=== PATIENT | male | born 1995 | race Caucasian/White ===

== ENCOUNTER 2018-03-05 08:57 | Inpatient (IN) | payer BC ==
[~2018-03-05] VITALS: Ht 188 cm; Wt 117.9 kg
[~2018-03-05 08:57] MED LIST: LAMO200T PO; PREG300C PO; STRATTERA PO
[2018-03-05 09:04] VITALS: BP_SYST 148
[2018-03-05] MEDS ORDERED: NACL 0.9% 1,000 ML IV ONE ×2 (09:23→17:30)
[2018-03-05] MEDS ORDERED: INSULIN REGULAR, HUMAN 10 UNITS/0.1 ML INJ IVP ONE ×2 (09:30→11:15)
[2018-03-05 10:01] LABS: HEMATOCRIT 46.9 % (36-54); HEMOGLOBIN 15.5 g/dL (14.0-18.0); MEAN CORPUSCULAR HEMOGLOBIN 32 pg (27-31); MEAN CORPUSCULAR HGB CONC 33 % (32-36); MEAN CORPUSCULAR VOLUME 96 fL (79.0-98.0); PLATELET COUNT (AUTO) 281 K/uL (130-430); RED BLOOD CELL COUNT(AUTO) 4.89 MIL/uL (4.2-6.2); RED CELL DISTRIBUTION WIDTH 14.9 % (9.0-15.0); WHITE BLOOD COUNT (AUTO) 13.4 K/uL (4.5-11.0)
[2018-03-05 10:13] LABS: ATYPICAL LYMPHOCYTES % 0 % (0-0); BAND % (MANUAL) 2 % (0-6); BASOPHILS % (MANUAL) 0 % (0-2); EOSINOPHILS % (MANUAL) 0 % (0-7); LYMPHOCYTES % (MANUAL) 13 % (20-46); MONOCYTES % (MANUAL) 6 % (0-11)
[2018-03-05 10:15] LABS: BILIRUBIN,URINE 2+ (NEGATIVE); CLARITY/URINE CLEAR (CLEAR); COLOR,URINE YELLOW (YELLOW); GLUCOSE,URINE 3+ (NEGATIVE); KETONES,URINE 3+ (NEGATIVE); LEUKOCYTE ESTERASE ,URINE NEGATIVE (NEGATIVE); NITRITE, URINE NEGATIVE (NEGATIVE); PH,URINE 5.5 (5.0-8.0); PROTEIN URINE 1+ (NEGATIVE); UROBILINOGEN,URINE 0.2 (0.2-1.0)
[2018-03-05 10:31] LABS: BLOOD, URINE TRACE (NEGATIVE)
[2018-03-05 10:38] LABS: PROTHROMBIN TIME 10.3 SECS (9.5-12.5)
[2018-03-05 10:40] LABS: ANION GAP 36 (5-15); POTASSIUM 5.4 mmol/L (3.5-5.1); SODIUM SERUM 123 mmol/L (136-145)
[2018-03-05 10:41] LABS: ALANINE AMINOTRANSFERASE 73 U/L (12-78); ALBUMIN 3.9 g/dL (3.4-4.8); ASPARTATE AMINOTRANSFERASE 27 U/L (10-37); CALCIUM 9.4 mg/dL (8.4-11.0); CREATININE 3.49 mg/dL (0.55-1.30); GFR AFRICAN AMERICAN 29 mL/min (>90); TOTAL BILIRUBIN 0.7 mg/dL (0.0-1.0); UREA NITROGEN, BLOOD 39 mg/dL (8-21)
[2018-03-05 10:42] LABS: ALCOHOL, BLOOD < 3 mg/dL (<10); AMYLASE 28 U/L (0-100); LIPASE 306 U/L (73-393)
[2018-03-05 10:45] LABS: CHLORIDE 81 mmol/L (98-107)
[2018-03-05 10:57] LABS: GLUCOSE 816 mg/dL (70-99)
[2018-03-05] MEDS ORDERED: MORPHINE 4 MG/ML INJ. SYRINGE IVP ONE (11:00)
[2018-03-05 11:10] LABS: CALCIUM 9.1 mg/dL (8.4-11.0); CREATININE 3.09 mg/dL (0.55-1.30)
[2018-03-05 11:15] LABS: POTASSIUM 5.9 mmol/L (3.5-5.1)
[2018-03-05 11:23] LABS: BARBITURATE, URINE NEGATIVE (NEG <=200); BENZODIAZEPINE, URINE NEGATIVE (NEG <=150); CANNABINOID, URINE NEGATIVE (NEG <=50); COCAINE, URINE NEGATIVE (NEG <=150); METHAMPHETAMINES SCREEN,URINE NEGATIVE (NEG <=500); OPIATE, URINE NEGATIVE (NEG <=100); PHENCYCLIDINE SCREEN,URINE NEGATIVE (NEG <=25); UR TRICYCLIC ANTIDEPRESSANTS NEGATIVE (NEG <=300); URINE AMPHETAMINE NEGATIVE (NEG <=500); URINE METHADONE NEGATIVE (NEG <=200); URINE OXYCODONE SCREEN NEGATIVE (NEG <=100); URINE PROPOXYPHENE SCREEN NEGATIVE (NEG <=300)
[2018-03-05 11:24] LABS: BACTERIA,URINE FEW /HPF (None Seen); MUCUS,URINE None Seen /LPF (None Seen); RBC,URINE 0-3 /HPF (0-3); WBC,URINE 0-3 /HPF (0-3)
[2018-03-05] MEDS ORDERED: MORPHINE I.V. DRIP 100 ML IV PRN (12:00)
[2018-03-05] MEDS: INSULIN REGULAR, HUMAN 100 UNITS in NS 99 ML IV PRN ×4 (12:34→15:09)
[2018-03-05] MEDS ORDERED: SODIUM BICARBONATE 8.4% JECT 50 MEQ/50 ML SYRINGE ONE ×2 (12:40→20:00)
[2018-03-05 15:31] LABS: CALCIUM 9.4 mg/dL (8.4-11.0); CREATININE 2.35 mg/dL (0.55-1.30); POTASSIUM 4.8 mmol/L (3.5-5.1)
[2018-03-05] MEDS ORDERED: SODIUM BICARBONATE 8.4% JECT 100 MEQ in D5W 1,000 ML IV SCH ×2 (17:15→23:30)
[2018-03-05] MEDS ORDERED: INSULIN NPH 100 UNITS/ML 10 ML VIAL SUBCUT ONE (17:30)
[2018-03-05] MEDS ORDERED: SODIUM BICARBONATE 8.4% JECT 50 MEQ/50 ML SYRINGE IVP ONE (18:00)
[2018-03-05] MEDS: NACL 0.9% 1,000 ML IV SCH ×3 (19:13→22:10)
[2018-03-05 20:00] VITALS: BP_SYST 132
[2018-03-05 20:19] VITALS: BP_SYST 132
[2018-03-05 20:49] LABS: CALCIUM 8.4 mg/dL (8.4-11.0); CREATININE 1.64 mg/dL (0.55-1.30); POTASSIUM 4.5 mmol/L (3.5-5.1)
[2018-03-05 21:00] VITALS: BP_SYST 124
[2018-03-05] MEDS: PREGABALIN 75 MG CAPSULE (LYRICA) PO SCH (21:00)
[2018-03-05] MEDS ORDERED: cefTRIAXone 1 GM IVPB PREMIX 50 ML IV ONE (21:04)
[2018-03-05] MEDS: cefTRIAXone 1 GM in D5W 50 ML IV SCH (21:18)
[2018-03-05] MEDS ORDERED: INSULIN REGULAR, HUMAN 100 UNITS in NS 99 ML IV PRN ×2 (21:45)
[2018-03-05 22:00] VITALS: BP_SYST 122
[2018-03-05 22:40] LABS: CALCIUM 8.3 mg/dL (8.4-11.0); CREATININE 1.18 mg/dL (0.55-1.30); POTASSIUM 4.7 mmol/L (3.5-5.1)
[2018-03-05 22:46] LABS: ALBUMIN 3.1 g/dL (3.4-4.8); TOTAL BILIRUBIN 0.6 mg/dL (0.0-1.0)
[2018-03-05 23:00] VITALS: BP_SYST 137
[2018-03-06] VITALS (24 sets, daily range): BP systolic 135–187
[2018-03-06] MEDS ORDERED: PANTOPRAZOLE SODIUM 40 MG/VIAL (PROTONIX) ONE (00:14)
[2018-03-06] MEDS: PANTOPRAZOLE SODIUM 40 MG/VIAL (PROTONIX) IVP SCH ×2 (00:15→08:58)
[2018-03-06] MEDS ORDERED: DIVA500T4 PO (00:38)
[2018-03-06] MEDS ORDERED: LACO100T2 PO (00:38)
[2018-03-06] MEDS ORDERED: SODIUM BICARBONATE 8.4% JECT 50 MEQ/50 ML SYRINGE ONE (01:32)
[2018-03-06] MEDS: NACL 0.9% 1,000 ML IV SCH (03:40)
[2018-03-06 06:23] LABS: BASOPHILS % (AUTO) 0.4 % (0.0-2.0); EOSINOPHILS % (AUTO) 0.4 % (0.0-4.0); HEMATOCRIT 36.8 % (36-54); HEMOGLOBIN 12.6 g/dL (14.0-18.0); LYMPHOCYTES # (AUTO) 2.2 K/uL (1.0-5.5); LYMPHOCYTES % (AUTO) 32.9 % (20.5-51.5); MEAN CORPUSCULAR HEMOGLOBIN 32 pg (27-31); MEAN CORPUSCULAR HGB CONC 34 % (32-36); MEAN CORPUSCULAR VOLUME 93 fL (79.0-98.0); MONOCYTES # (AUTO) 0.6 K/uL (0.0-1.0); MONOCYTES % (AUTO) 9.5 % (1.7-9.3); NEUTROPHILS % (AUTO) 56.8 % (40.0-70.0); PLATELET COUNT (AUTO) 164 K/uL (130-430); RED BLOOD CELL COUNT(AUTO) 3.96 MIL/uL (4.2-6.2); RED CELL DISTRIBUTION WIDTH 14.6 % (9.0-15.0); WHITE BLOOD COUNT (AUTO) 6.8 K/uL (4.5-11.0)
[2018-03-06 07:04] LABS: CREATININE 1.36 mg/dL (0.55-1.30); PHOSPHORUS 1.6 mg/dL (2.7-4.5)
[2018-03-06] MEDS ORDERED: LORazepam 2 MG/ML VIAL IVP PRN (08:15)
[2018-03-06] MEDS ORDERED: STRATTERA 80 MG PO SCH (09:00)
[2018-03-06] MEDS ORDERED: INSULIN REGULAR, HUMAN 100 UNITS/ML, 10 ML VIAL (novoLIN R) SUBCUT PRN (12:15)
[2018-03-06] MEDS ORDERED: POTASSIUM CHLORIDE 20 MEQ/PKT PACKET PO ONE (12:15)
[2018-03-06] MEDS: PREGABALIN 75 MG CAPSULE (LYRICA) PO SCH (12:32)
[2018-03-06] MEDS ORDERED: LIP20 PO (12:35)
[2018-03-06] MEDS ORDERED: GLU500 PO (12:35)
[2018-03-06] MEDS ORDERED: LOSA50TA3 PO (12:35)
[2018-03-06 12:41] LABS: CREATININE 1.25 mg/dL (0.55-1.30); POTASSIUM 3.2 mmol/L (3.5-5.1)
[2018-03-06 12:45] LABS: PHOSPHORUS 2.4 mg/dL (2.7-4.5)
[2018-03-06] MEDS: KCL 20 mEq in 0.45% NS 1000 mL 1,000 ML IV SCH ×3 (14:09→21:46)
[2018-03-06] MEDS ORDERED: POTASSIUM CHLORIDE 20 MEQ TAB.PRT.SR PO ONE ×3 (15:00→23:10)
[2018-03-06] MEDS: cefTRIAXone 1 GM in D5W 50 ML IV SCH (17:03)
[2018-03-06] MEDS ORDERED: metFORMIN HCL 500 MG TABLET PO SCH (18:00)
[2018-03-06] MEDS ORDERED: LOSARTAN POTASSIUM 50 MG TABLET (COZAAR) PO ONE (18:30)
[2018-03-06] MEDS ORDERED: DIVALPROEX SODIUM 500 MG TAB.SR.24H (DEPAKOTE ER) PO ONE (18:30)
[2018-03-06] MEDS ORDERED: LAM25 PO (18:44)
[2018-03-06] MEDS ORDERED: INSULIN REGULAR, HUMAN 100 UNITS in NS 99 ML IV SCH ×2 (19:30)
[2018-03-06 20:37] LABS: CREATININE 1.23 mg/dL (0.55-1.30); PHOSPHORUS 2.1 mg/dL (2.7-4.5)
[2018-03-06] MEDS: LACOSAMIDE 100 MG TABLET PO SCH (20:53)
[2018-03-06] MEDS: LamoTRIgine 25 MG TABLET PO SCH (20:53)
[2018-03-06] MEDS: ATORVASTATIN 20 MG TABLET PO SCH (20:53)
[2018-03-06] MEDS ORDERED: INSULIN ASPART 100 UNITS/ML, 10 ML VIAL SUBCUT ONE (21:15)
[2018-03-07] VITALS (13 sets, daily range): BP systolic 125–157
[2018-03-07] MEDS: KCL 20 mEq in 0.45% NS 1000 mL 1,000 ML IV SCH ×4 (03:01→19:13)
[2018-03-07 06:39] LABS: BASOPHILS # (AUTO) 0.1 K/uL (0.0-0.2); BASOPHILS % (AUTO) 0.7 % (0.0-2.0); EOSINOPHILS # (AUTO) 0.1 K/uL (0.0-0.4); EOSINOPHILS % (AUTO) 1.5 % (0.0-4.0); HEMATOCRIT 36.8 % (36-54); HEMOGLOBIN 12.9 g/dL (14.0-18.0); LYMPHOCYTES # (AUTO) 2.8 K/uL (1.0-5.5); LYMPHOCYTES % (AUTO) 32.7 % (20.5-51.5); MEAN CORPUSCULAR HEMOGLOBIN 32 pg (27-31); MEAN CORPUSCULAR HGB CONC 35 % (32-36); MEAN CORPUSCULAR VOLUME 92 fL (79.0-98.0); MONOCYTES # (AUTO) 0.9 K/uL (0.0-1.0); MONOCYTES % (AUTO) 10.1 % (1.7-9.3); NEUTROPHILS # (AUTO) 4.6 K/uL (1.8-7.7); PLATELET COUNT (AUTO) 150 K/uL (130-430); RED BLOOD CELL COUNT(AUTO) 4.01 MIL/uL (4.2-6.2); RED CELL DISTRIBUTION WIDTH 13.6 % (9.0-15.0); WHITE BLOOD COUNT (AUTO) 8.5 K/uL (4.5-11.0)
[2018-03-07 06:51] LABS: CALCIUM 9.2 mg/dL (8.4-11.0); CREATININE 1.1 mg/dL (0.55-1.30); POTASSIUM 3.4 mmol/L (3.5-5.1); THYROID STIMULATING HORMONE 2.28 uIu/mL (0.34-4.82); TOTAL BILIRUBIN 0.6 mg/dL (0.0-1.0)
[2018-03-07] MEDS: INSULIN ASPART 100 UNITS/ML, 10 ML VIAL (NovoLOG) SUBCUT PRN ×4 (07:00→20:33)
[2018-03-07] MEDS ORDERED: POTASSIUM CHLORIDE 20 MEQ/PKT PACKET PO ONE (08:45)
[2018-03-07] MEDS: LACOSAMIDE 100 MG TABLET PO SCH ×2 (09:07→20:22)
[2018-03-07] MEDS: LamoTRIgine 25 MG TABLET PO SCH ×2 (09:07→20:22)
[2018-03-07] MEDS: LOSARTAN POTASSIUM 50 MG TABLET (COZAAR) PO SCH (09:08)
[2018-03-07] MEDS: DIVALPROEX SODIUM 500 MG TAB.SR.24H (DEPAKOTE ER) PO SCH ×2 (09:08→20:23)
[2018-03-07] MEDS: PANTOPRAZOLE SODIUM 40 MG/VIAL (PROTONIX) IVP SCH (09:09)
[2018-03-07] MEDS ORDERED: POTASSIUM CHLORIDE 20 MEQ/PKT PACKET ONE (09:24)
[2018-03-07] MEDS ORDERED: MAGNESIUM SULFATE 50 ML IV ONE (12:30)
[2018-03-07] MEDS ORDERED: POTASSIUM CHLORIDE 20 MEQ TAB.PRT.SR PO ONE (12:30)
[2018-03-07] MEDS: cefTRIAXone 1 GM in D5W 50 ML IV SCH (17:00)
[2018-03-07] MEDS: ATORVASTATIN 20 MG TABLET PO SCH (20:23)
[2018-03-08 00:47] VITALS: BP_SYST 122
[2018-03-08] MEDS: KCL 20 mEq in 0.45% NS 1000 mL 1,000 ML IV SCH ×2 (02:03→08:36)
[2018-03-08] MEDS: INSULIN ASPART 100 UNITS/ML, 10 ML VIAL (NovoLOG) SUBCUT PRN ×4 (06:05→21:48)
[2018-03-08 06:54] LABS: BASOPHILS % (AUTO) 0.5 % (0.0-2.0); EOSINOPHILS # (AUTO) 0.1 K/uL (0.0-0.4); HEMATOCRIT 32.8 % (36-54); HEMOGLOBIN 11.4 g/dL (14.0-18.0); LYMPHOCYTES # (AUTO) 2.9 K/uL (1.0-5.5); LYMPHOCYTES % (AUTO) 55.2 % (20.5-51.5); MEAN CORPUSCULAR HEMOGLOBIN 32 pg (27-31); MEAN CORPUSCULAR HGB CONC 35 % (32-36); MEAN CORPUSCULAR VOLUME 93 fL (79.0-98.0); MONOCYTES # (AUTO) 0.4 K/uL (0.0-1.0); MONOCYTES % (AUTO) 8.7 % (1.7-9.3); NEUTROPHILS # (AUTO) 1.7 K/uL (1.8-7.7); NEUTROPHILS % (AUTO) 33.6 % (40.0-70.0); PLATELET COUNT (AUTO) 113 K/uL (130-430); RED BLOOD CELL COUNT(AUTO) 3.54 MIL/uL (4.2-6.2); RED CELL DISTRIBUTION WIDTH 13.4 % (9.0-15.0); WHITE BLOOD COUNT (AUTO) 5.1 K/uL (4.5-11.0)
[2018-03-08 07:29] LABS: CALCIUM 8.9 mg/dL (8.4-11.0); CREATININE 1.04 mg/dL (0.55-1.30); POTASSIUM 3.5 mmol/L (3.5-5.1)
[2018-03-08] MEDS: LOSARTAN POTASSIUM 50 MG TABLET (COZAAR) PO SCH (08:29)
[2018-03-08] MEDS: DIVALPROEX SODIUM 500 MG TAB.SR.24H (DEPAKOTE ER) PO SCH ×2 (08:29→21:37)
[2018-03-08] MEDS: PANTOPRAZOLE SODIUM 40 MG/VIAL (PROTONIX) IVP SCH (08:29)
[2018-03-08] MEDS: LACOSAMIDE 100 MG TABLET PO SCH ×2 (08:30→21:38)
[2018-03-08] MEDS: LamoTRIgine 25 MG TABLET PO SCH ×2 (08:30→21:37)
[2018-03-08 08:43] VITALS: BP_SYST 136
[2018-03-08 12:00] VITALS: BP_SYST 125
[2018-03-08] MEDS ORDERED: INSULIN Aspart Prota/Aspar MIX 70-30, 100 UNITS/ML, 10 ML VIAL SUBCUT SCH (17:00)
[2018-03-08 17:10] VITALS: BP_SYST 126
[2018-03-08] MEDS: INSULIN NPH/REGULAR 70-30, 100 UNITS/ML, 10 ML VIAL SUBCUT SCH (17:28)
[2018-03-08] MEDS: cefTRIAXone 1 GM in D5W 50 ML IV SCH (17:36)
[2018-03-08 20:00] VITALS: BP_SYST 127
[2018-03-08] MEDS: IPRATROPIUM/ALBUTEROL SULFATE 3 ML AMPUL.NEB INH SCH (20:30)
[2018-03-08 20:42] VITALS: BP_SYST 126
[2018-03-08] MEDS: ATORVASTATIN 20 MG TABLET PO SCH (21:38)
[2018-03-09] MEDS: IPRATROPIUM/ALBUTEROL SULFATE 3 ML AMPUL.NEB INH SCH ×7 (00:03→23:00)
[2018-03-09 00:27] VITALS: BP_SYST 109
[2018-03-09] MEDS: INSULIN ASPART 100 UNITS/ML, 10 ML VIAL (NovoLOG) SUBCUT PRN ×4 (06:22→21:11)
[2018-03-09] MEDS: INSULIN NPH/REGULAR 70-30, 100 UNITS/ML, 10 ML VIAL SUBCUT SCH ×2 (06:22→17:14)
[2018-03-09 06:54] LABS: HEMATOCRIT 31.4 % (36-54); HEMOGLOBIN 11.1 g/dL (14.0-18.0); MEAN CORPUSCULAR HEMOGLOBIN 33 pg (27-31); MEAN CORPUSCULAR HGB CONC 35 % (32-36); MEAN CORPUSCULAR VOLUME 92 fL (79.0-98.0); PLATELET COUNT (AUTO) 105 K/uL (130-430); RED CELL DISTRIBUTION WIDTH 13.3 % (9.0-15.0); WHITE BLOOD COUNT (AUTO) 4.3 K/uL (4.5-11.0)
[2018-03-09] MEDS ORDERED: INSULIN Aspart Prota/Aspar MIX 70-30, 100 UNITS/ML, 10 ML VIAL SUBCUT SCH (07:00)
[2018-03-09 07:07] LABS: CALCIUM 9.1 mg/dL (8.4-11.0); POTASSIUM 3.5 mmol/L (3.5-5.1)
[2018-03-09 08:00] VITALS: BP_SYST 118
[2018-03-09 08:02] LABS: BASOPHILS % (MANUAL) 0 % (0-2); EOSINOPHILS % (MANUAL) 0 % (0-7); LYMPHOCYTES % (MANUAL) 55 % (20-46); MONOCYTES % (MANUAL) 9 % (0-11)
[2018-03-09] MEDS: LACOSAMIDE 100 MG TABLET PO SCH ×2 (09:18→21:09)
[2018-03-09] MEDS: LOSARTAN POTASSIUM 50 MG TABLET (COZAAR) PO SCH (09:19)
[2018-03-09] MEDS: PANTOPRAZOLE SODIUM 40 MG/VIAL (PROTONIX) IVP SCH (09:19)
[2018-03-09] MEDS: LamoTRIgine 25 MG TABLET PO SCH ×2 (09:19→21:09)
[2018-03-09] MEDS: DIVALPROEX SODIUM 500 MG TAB.SR.24H (DEPAKOTE ER) PO SCH ×2 (09:19→21:09)
[2018-03-09 12:00] VITALS: BP_SYST 125
[2018-03-09 14:00] VITALS: BP_SYST 144
[2018-03-09 20:00] VITALS: BP_SYST 130
[2018-03-09] MEDS: ATORVASTATIN 20 MG TABLET PO SCH (21:09)
[2018-03-09 21:39] VITALS: BP_SYST 133
[2018-03-10] MEDS: IPRATROPIUM/ALBUTEROL SULFATE 3 ML AMPUL.NEB INH SCH ×3 (03:00→11:53)
[2018-03-10] MEDS: INSULIN NPH/REGULAR 70-30, 100 UNITS/ML, 10 ML VIAL SUBCUT SCH (06:20)
[2018-03-10] MEDS: INSULIN ASPART 100 UNITS/ML, 10 ML VIAL (NovoLOG) SUBCUT PRN ×2 (06:25→12:05)
[2018-03-10 08:00] VITALS: BP_SYST 132
[2018-03-10] MEDS: LACOSAMIDE 100 MG TABLET PO SCH (08:46)
[2018-03-10] MEDS: LamoTRIgine 25 MG TABLET PO SCH (08:46)
[2018-03-10] MEDS: PANTOPRAZOLE SODIUM 40 MG/VIAL (PROTONIX) IVP SCH (08:47)
[2018-03-10] MEDS: LOSARTAN POTASSIUM 50 MG TABLET (COZAAR) PO SCH (08:47)
[2018-03-10] MEDS: DIVALPROEX SODIUM 500 MG TAB.SR.24H (DEPAKOTE ER) PO SCH (08:47)
[2018-03-10 12:11] VITALS: BP_SYST 118
[2018-03-10] MEDS ORDERED: HUM10VIA3 SUBCUT ×2 (13:54→13:56)
[2018-03-10 14:07] VITALS: BP_SYST 127
[2018-03-10] MEDS ORDERED: INSULIN NPH/REGULAR 70-30, 100 UNITS/ML, 10 ML VIAL SUBCUT SCH (17:00)
[2018-03-11] MEDS ORDERED: INSULIN NPH/REGULAR 70-30, 100 UNITS/ML, 10 ML VIAL SUBCUT SCH (07:00)
== END 2018-03-10 14:40 | disposition home health service (06) | DRG 637 ==
LOC: SED 08:57 → SIC 11:40 → STU 03-07 10:20 → SMU 03-09 12:29
PROVIDERS: ADMIT Internal Medicine; ATTEND Internal Medicine
DX: E11.11 Type 2 diabetes mellitus with ketoacidosis with coma (principal); N17.0 Acute kidney failure with tubular necrosis; E87.0 Hyperosmolality and hypernatremia; E44.1 Mild protein-calorie malnutrition; G40.909 Epilepsy, unspecified, not intractable, without status epilepticus; E66.9 Obesity, unspecified; E87.5 Hyperkalemia; E87.6 Hypokalemia; Z68.33 Body mass index [BMI] 33.0-33.9, adult; Z83.3 Family history of diabetes mellitus; Z82.49 Family history of ischemic heart disease and other diseases of the circulatory system; Z82.0 Family history of epilepsy and other diseases of the nervous system; Z91.19 Patient's noncompliance with other medical treatment and regimen
CPT/HCPCS: 36415; 36600; 71045; 80048; 80053; 80061; 80164-TC; 80307; 81000-TC; 82150-TC; 82542; 82550-TC; 82803-TC; 82947-TC; 82962; 83036; 83690-TC; 83735-TC; 84100-TC; 84311; 84443-TC; 84484; 85007; 85025; 85027; 85610-TC; 85730-TC; 87081; 93005; 94640; 94760; 96361; 96374; 97116-GP; 97530-GP; 99285; C9113; G0482; J0696; J1815; J2060; J3475; J3480; J7030; J7060; J7620

== ENCOUNTER 2019-09-25 19:35 | Emergency (ER) | payer BC ==
[~2019-09-25] VITALS: Ht 188 cm; Wt 122.5 kg
[~2019-09-25 19:35] MED LIST changes: +DIVA500T4 PO; +HUM10VIA3 SUBCUT; +LACO100T2 PO; +LAM25 PO; -LAMO200T PO; -PREG300C PO; -STRATTERA PO
[2019-09-25 20:27] VITALS: BP_SYST 151
[2019-09-25 21:03] LABS: BASOPHILS % (AUTO) 0.5 % (0.0-2.0); EOSINOPHILS # (AUTO) 0.1 K/uL (0.0-0.4); EOSINOPHILS % (AUTO) 0.8 % (0.0-4.0); HEMATOCRIT 44.2 % (36-54); HEMOGLOBIN 15.2 g/dL (14.0-18.0); LYMPHOCYTES % (AUTO) 47.8 % (20.5-51.5); MEAN CORPUSCULAR HEMOGLOBIN 33 pg (27-31); MEAN CORPUSCULAR HGB CONC 34 % (32-36); MEAN CORPUSCULAR VOLUME 96 fL (79.0-98.0); MONOCYTES # (AUTO) 0.7 K/uL (0.0-1.0); MONOCYTES % (AUTO) 7.9 % (1.7-9.3); NEUTROPHILS # (AUTO) 3.6 K/uL (1.8-7.7); PLATELET COUNT (AUTO) 259 K/uL (130-430); RED BLOOD CELL COUNT(AUTO) 4.62 MIL/uL (4.2-6.2); RED CELL DISTRIBUTION WIDTH 14.3 % (9.0-15.0); WHITE BLOOD COUNT (AUTO) 8.4 K/uL (4.8-10.8)
[2019-09-25 21:20] LABS: CALCIUM 8.8 mg/dL (8.4-11.0); CREATININE 1.2 mg/dL (0.55-1.30); POTASSIUM 4.3 mmol/L (3.5-5.1)
[2019-09-25 21:23] LABS: ALBUMIN 3.8 g/dL (3.4-4.8); TOTAL BILIRUBIN 0.6 mg/dL (0.0-1.0)
--- NOTE | 2019-09-25 21:44 | NUR ---
Patient to ER bed 8 to gown for evaluation. Side rails up. Report given to MADYSON Scanlon
[2019-09-25] MEDS ORDERED: NACL 0.9% 1,000 ML IV ONE ×2 (21:45→23:45)
[2019-09-25] MEDS ORDERED: INSULIN REGULAR, HUMAN 100 UNITS in NS 99 ML IV ONE ×2 (21:45)
[2019-09-25] MEDS ORDERED: INSULIN REGULAR, HUMAN 10 UNITS/0.1 ML INJ IVP ONE (21:45)
--- NOTE | 2019-09-25 21:50 | NUR ---
PAtient brought in with parents. Patient reports his is a type 2 diabetic. He took his blood sugar tonight and it showed HIGH. Patient presented to the ED for evaluation. Denies any symptoms. No other complaints/injuries per patient or as noted. Will continue to monitor.
[2019-09-25 22:14] LABS: BILIRUBIN,URINE 1+ (NEGATIVE); BLOOD, URINE 1+ (NEGATIVE); CLARITY/URINE CLEAR (CLEAR); COLOR,URINE YELLOW (YELLOW); GLUCOSE,URINE 3+ (NEGATIVE); KETONES,URINE 3+ (NEGATIVE); LEUKOCYTE ESTERASE ,URINE NEGATIVE (NEGATIVE); NITRITE, URINE NEGATIVE (NEGATIVE); PH,URINE 5.5 (5.0-8.0); PROTEIN URINE TRACE (NEGATIVE); UROBILINOGEN,URINE 0.2 (0.2-1.0)
[2019-09-25 22:24] LABS: BACTERIA,URINE FEW /HPF (None Seen); WBC,URINE 0-3 /HPF (0-3)
--- NOTE | 2019-09-25 23:08 | NUR ---
Blood sugar 335 sp medication and Liter NS. Dr. Strange notified. Per , one more liter ordered and recheck glucose
--- NOTE | 2019-09-25 23:43 | NUR ---
ER at bedside examining patient.
[2019-09-26 01:00] VITALS: BP_SYST 148
--- NOTE | 2019-09-26 01:00 | NUR ---
Patient given written and verbal discharge instructions and verbalizes understanding. ER MD discussed with patient the results and treatment provided. Patient in stable condition. ID arm band removed. IV catheter removed intact and dressing applied, no active bleeding. No rx given. Patient educated on pain management and to follow up with PMD. Pain Scale 0/10 Opportunity for questions provided and answered. Medication side effect fact sheet provided.
== END 2019-09-26 01:00 | disposition home or self-care (01) ==
LOC: SED 19:35
DX: E11.65 Type 2 diabetes mellitus with hyperglycemia (principal); Z79.4 Long term (current) use of insulin; Z79.899 Other long term (current) drug therapy
CPT/HCPCS: 36415; 80053; 81000; 82009; 82962; 83605; 85025; 96361; 96374; 99283; J1815; J7030

== ENCOUNTER 2021-01-15 19:21 | Inpatient (IN) | payer BC, SELFPAY ==
[~2021-01-15] VITALS: Ht 185.4 cm; Wt 121.6 kg
[2021-01-15 19:29] VITALS: BP_SYST 135
[2021-01-15] MEDS: NACL 0.9% 1,000 ML IV SCH ×2 (19:30→23:01)
[2021-01-15] MEDS ORDERED: NACL 0.9% 1,000 ML IV ONE ×2 (20:45→21:45)
[2021-01-15 20:56] LABS: BASOPHILS # (AUTO) 0.1 K/uL (0.0-0.2); BASOPHILS % (AUTO) 0.4 % (0.0-2.0); EOSINOPHILS # (AUTO) 0.1 K/uL (0.0-0.4); EOSINOPHILS % (AUTO) 0.5 % (0.0-4.0); HEMATOCRIT 52.6 % (36-54); HEMOGLOBIN 18.1 g/dL (14.0-18.0); LYMPHOCYTES % (AUTO) 24.9 % (20.5-51.5); MEAN CORPUSCULAR HEMOGLOBIN 33 pg (27-31); MEAN CORPUSCULAR HGB CONC 34 % (32-36); MEAN CORPUSCULAR VOLUME 95 fL (79.0-98.0); MONOCYTES # (AUTO) 1.4 K/uL (0.0-1.0); MONOCYTES % (AUTO) 8.6 % (1.7-9.3); NEUTROPHILS # (AUTO) 10.6 K/uL (1.8-7.7); NEUTROPHILS % (AUTO) 65.6 % (40.0-70.0); PLATELET COUNT (AUTO) 291 K/uL (130-430); RED BLOOD CELL COUNT(AUTO) 5.52 MIL/uL (4.2-6.2); RED CELL DISTRIBUTION WIDTH 14.6 % (9.0-15.0); WHITE BLOOD COUNT (AUTO) 16.1 K/uL (4.8-10.8)
[2021-01-15 21:30] LABS: ANION GAP 23 (5-15); CALCIUM 8.6 mg/dL (8.4-11.0); CHLORIDE 101 mmol/L (98-107); CREATININE 1.23 mg/dL (0.55-1.30); GLUCOSE 332 mg/dL (70-99); POTASSIUM 5.4 mmol/L (3.5-5.1); SODIUM SERUM 136 mmol/L (136-145); UREA NITROGEN, BLOOD 8 mg/dL (8-21)
[2021-01-15 21:31] LABS: GFR AFRICAN AMERICAN 94 mL/min (>90)
[2021-01-15 21:36] LABS: TOTAL BILIRUBIN 0.6 mg/dL (0.0-1.0)
[2021-01-15 21:37] LABS: ACETONE, SERUM MODERATE (NEGATIVE)
[2021-01-15] MEDS ORDERED: INSULIN REGULAR, HUMAN 100 UNITS in NS 99 ML IV ONE ×2 (21:45)
[2021-01-15] MEDS ORDERED: INSULIN REGULAR, HUMAN 10 UNITS/0.1 ML INJ ONE ×2 (21:48→22:03)
[2021-01-15 21:53] LABS: BILIRUBIN,URINE 2+ (NEGATIVE); BLOOD, URINE 2+ (NEGATIVE); CLARITY/URINE CLEAR (CLEAR); COLOR,URINE YELLOW (YELLOW); GLUCOSE,URINE 2+ (NEGATIVE); KETONES,URINE 3+ (NEGATIVE); LEUKOCYTE ESTERASE ,URINE NEGATIVE (NEGATIVE); NITRITE, URINE NEGATIVE (NEGATIVE); PROTEIN URINE 3+ (NEGATIVE); UROBILINOGEN,URINE 0.2 (0.2-1.0)
[2021-01-15] MEDS ORDERED: hydrALAZINE HCL 20 MG/ML VIAL IVP ONE (22:30)
[2021-01-15] MEDS ORDERED: ACETAMINOPHEN 325 MG TABLET PO PRN (22:45)
[2021-01-15] MEDS ORDERED: cefTRIAXone 1 GM in D5W 50 ML IV ONE (22:45)
[2021-01-15] MEDS ORDERED: PANTOPRAZOLE SODIUM 40 MG TAB PO ONE (22:45)
[2021-01-15] MEDS ORDERED: LORazepam 2 MG/ML VIAL IVP PRN (23:00)
[2021-01-15 23:09] LABS: BACTERIA,URINE FEW /HPF (None Seen); FINE GRANULAR CASTS,URINE 0-10 /LPF (None Seen); MUCUS,URINE None Seen /LPF (None Seen); WBC,URINE 0-3 /HPF (0-3)
[2021-01-15] MEDS ORDERED: LAM100 PO ×2 (23:12→23:13)
[2021-01-15] MEDS ORDERED: DIVA-74 PO ×2 (23:14)
[2021-01-15 23:21] LABS: ALANINE AMINOTRANSFERASE 72 U/L (12-78)
[2021-01-15] MEDS ORDERED: cefTRIAXone 1 GM VIAL ONE (23:24)
[2021-01-15 23:34] LABS: ASPARTATE AMINOTRANSFERASE 50 U/L (10-37)
[2021-01-16] VITALS (24 sets, daily range): BP systolic 114–179
[2021-01-16] MEDS ORDERED: INSULIN REGULAR, HUMAN 100 UNITS in NS 99 ML IV PRN ×2 (00:30)
[2021-01-16] MEDS ORDERED: MORPHINE 2 MG/ML INJ. SYRINGE ONE (00:35)
[2021-01-16] MEDS: MORPHINE 2 MG/ML INJ. SYRINGE IVP PRN ×3 (00:51→21:02)
[2021-01-16 03:04] LABS: CALCIUM 7.9 mg/dL (8.4-11.0); CREATININE 1.13 mg/dL (0.55-1.30); PHOSPHORUS 2.5 mg/dL (2.7-4.5); POTASSIUM 4.1 mmol/L (3.5-5.1); THYROID STIMULATING HORMONE 0.78 uIu/mL (0.34-4.82)
[2021-01-16] MEDS: LOSARTAN POTASSIUM 25 MG TABLET PO SCH ×2 (03:45→20:58)
[2021-01-16] MEDS ORDERED: LOSARTAN POTASSIUM 25 MG TABLET ONE (03:50)
[2021-01-16] MEDS: cloNIDine HCL 0.1 MG TABLET PO PRN ×2 (04:30→17:44)
[2021-01-16 05:30] LABS: BASOPHILS % (AUTO) 0.3 % (0.0-2.0); EOSINOPHILS % (AUTO) 0.2 % (0.0-4.0); HEMATOCRIT 51.2 % (36-54); HEMOGLOBIN 17.2 g/dL (14.0-18.0); LYMPHOCYTES # (AUTO) 2.6 K/uL (1.0-5.5); LYMPHOCYTES % (AUTO) 14.6 % (20.5-51.5); MEAN CORPUSCULAR HEMOGLOBIN 32 pg (27-31); MEAN CORPUSCULAR HGB CONC 34 % (32-36); MEAN CORPUSCULAR VOLUME 96 fL (79.0-98.0); MONOCYTES % (AUTO) 11.3 % (1.7-9.3); NEUTROPHILS # (AUTO) 13.2 K/uL (1.8-7.7); NEUTROPHILS % (AUTO) 73.6 % (40.0-70.0); PLATELET COUNT (AUTO) 383 K/uL (130-430); RED BLOOD CELL COUNT(AUTO) 5.36 MIL/uL (4.2-6.2); RED CELL DISTRIBUTION WIDTH 14.9 % (9.0-15.0)
[2021-01-16] MEDS ORDERED: METOCLOPRAMIDE HCL 10 MG/2 ML VIAL IVP ONE (06:00)
[2021-01-16 06:04] LABS: ALBUMIN 3.7 g/dL (3.4-4.8); CALCIUM 7.9 mg/dL (8.4-11.0); CREATININE 1.12 mg/dL (0.55-1.30); POTASSIUM 4.1 mmol/L (3.5-5.1); TOTAL BILIRUBIN 0.6 mg/dL (0.0-1.0)
[2021-01-16] MEDS: METOCLOPRAMIDE HCL 10 MG/2 ML VIAL ONE ×3 (06:05→07:28)
[2021-01-16] MEDS: NACL 0.9% 1,000 ML IV SCH ×3 (07:24→12:21)
[2021-01-16] MEDS ORDERED: SODIUM BICARBONATE 8.4% JECT 50 MEQ/50 ML SYRINGE IVP ONE (07:45)
[2021-01-16 08:45] LABS: PHOSPHORUS 2.5 mg/dL (2.7-4.5)
[2021-01-16] MEDS: LamoTRIgine 25 MG TABLET PO SCH ×2 (08:45→20:57)
[2021-01-16] MEDS: LACOSAMIDE 100 MG TABLET PO SCH ×2 (08:45→20:57)
[2021-01-16] MEDS: METOPROLOL TARTRATE 25 MG TABLET PO SCH ×2 (08:49→20:58)
[2021-01-16] MEDS ORDERED: DIVALPROEX SODIUM 250 MG TAB.SR.24H (DEPAKOTE ER) PO SCH (09:00)
[2021-01-16] MEDS: DIVALPROEX SODIUM 250 MG TAB.SR.24H (DEPAKOTE ER) PO SCH ×2 (09:57→20:57)
[2021-01-16 11:40] LABS: CALCIUM 7.5 mg/dL (8.4-11.0); CREATININE 1.32 mg/dL (0.55-1.30); PHOSPHORUS 1.9 mg/dL (2.7-4.5)
[2021-01-16] MEDS ORDERED: NS IV ONE (13:00)
[2021-01-16] MEDS ORDERED: NA PHOS IV ONE (13:00)
[2021-01-16] MEDS: METOCLOPRAMIDE HCL 10 MG/2 ML VIAL IVP SCH ×2 (14:21→21:05)
[2021-01-16 14:28] LABS: ALBUMIN 3.1 g/dL (3.4-4.8); BILIRUBIN,DIRECT 0.1 mg/dL (0.0-0.3); TOTAL BILIRUBIN 0.4 mg/dL (0.0-1.0)
[2021-01-16] MEDS: INSULIN REGULAR, HUMAN 100 UNITS in NS 99 ML IV PRN ×2 (16:02)
[2021-01-16 20:02] LABS: CALCIUM 7.8 mg/dL (8.4-11.0); CREATININE 1.19 mg/dL (0.55-1.30); POTASSIUM 3.2 mmol/L (3.5-5.1)
[2021-01-16 20:06] LABS: PHOSPHORUS 1.9 mg/dL (2.7-4.5)
[2021-01-16] MEDS ORDERED: POTASSIUM CHLORIDE 40 MEQ, LIDOCAINE JECT 2% PF 100 MG 50 MG in NS 250 ML IV ONE ×2 (20:45→22:30)
[2021-01-16] MEDS ORDERED: VANCOMYCIN HCL 1 GM/NS PREMIX 250 ML IV ONE (22:30)
[2021-01-16] MEDS ORDERED: KCL 20 mEq in NS 1000 mL 1,000 ML IV SCH (22:30)
[2021-01-16] MEDS ORDERED: VANCOMYCIN HCL 1000 MG/VIAL IV ONE (23:01)
[2021-01-16] MEDS ORDERED: KCL 20 mEq in 100 mL (PREMIX) 200 ML IV ONE (23:02)
[2021-01-16] MEDS ORDERED: LIDOCAINE 2%, 20 ML MDV ONE (23:03)
[2021-01-16] MEDS ORDERED: KCL 20 mEq in NS 1000 mL 1,000 ML IV ONE (23:25)
[2021-01-17] VITALS (24 sets, daily range): BP systolic 118–158
[2021-01-17 01:33] LABS: CALCIUM 8.4 mg/dL (8.4-11.0); CREATININE 1.26 mg/dL (0.55-1.30); PHOSPHORUS 1.4 mg/dL (2.7-4.5); POTASSIUM 3.5 mmol/L (3.5-5.1)
[2021-01-17] MEDS: ONDANSETRON HCL 4 MG/2 ML VIAL IVP PRN ×3 (03:04→20:18)
[2021-01-17] MEDS: MORPHINE 2 MG/ML INJ. SYRINGE IVP PRN ×3 (03:06→14:08)
[2021-01-17] MEDS ORDERED: MORPHINE 2 MG/ML INJ. SYRINGE IVP ONE (03:45)
[2021-01-17] MEDS: METOCLOPRAMIDE HCL 10 MG/2 ML VIAL IVP SCH ×3 (05:49→22:23)
[2021-01-17] MEDS: D5/0.45 NS 1,000 ML IV SCH ×2 (05:52→16:30)
[2021-01-17] MEDS: KCL 20 mEq in NS 1000 mL 1,000 ML IV SCH ×2 (08:29→16:30)
[2021-01-17] MEDS: LACOSAMIDE 100 MG TABLET PO SCH ×2 (08:29→20:09)
[2021-01-17] MEDS: LOSARTAN POTASSIUM 25 MG TABLET PO SCH ×2 (08:30→20:09)
[2021-01-17] MEDS: DIVALPROEX SODIUM 250 MG TAB.SR.24H (DEPAKOTE ER) PO SCH ×2 (08:30→20:13)
[2021-01-17] MEDS: METOPROLOL TARTRATE 25 MG TABLET PO SCH ×2 (08:31→20:10)
[2021-01-17 08:40] LABS: BASOPHILS % (AUTO) 0.3 % (0.0-2.0); HEMATOCRIT 43.6 % (36-54); LYMPHOCYTES # (AUTO) 1.1 K/uL (1.0-5.5); LYMPHOCYTES % (AUTO) 9.9 % (20.5-51.5); MEAN CORPUSCULAR HEMOGLOBIN 30 pg (27-31); MEAN CORPUSCULAR HGB CONC 32 % (32-36); MEAN CORPUSCULAR VOLUME 94 fL (79.0-98.0); MONOCYTES # (AUTO) 1.6 K/uL (0.0-1.0); MONOCYTES % (AUTO) 14.4 % (1.7-9.3); NEUTROPHILS # (AUTO) 8.4 K/uL (1.8-7.7); NEUTROPHILS % (AUTO) 75.4 % (40.0-70.0); PLATELET COUNT (AUTO) 186 K/uL (130-430); RED BLOOD CELL COUNT(AUTO) 4.64 MIL/uL (4.2-6.2); RED CELL DISTRIBUTION WIDTH 14.7 % (9.0-15.0); WHITE BLOOD COUNT (AUTO) 11.2 K/uL (4.8-10.8)
[2021-01-17] MEDS: LamoTRIgine 25 MG TABLET PO SCH ×2 (08:41→20:09)
[2021-01-17 09:10] LABS: ALBUMIN 2.4 g/dL (3.4-4.8); CALCIUM 8.7 mg/dL (8.4-11.0); CREATININE 1.16 mg/dL (0.55-1.30); PHOSPHORUS 1.3 mg/dL (2.7-4.5); POTASSIUM 3.3 mmol/L (3.5-5.1); TOTAL BILIRUBIN 0.6 mg/dL (0.0-1.0)
[2021-01-17] MEDS ORDERED: KCL 40 mEq in 100 mL (PREMIX) 40 MEQ, LIDOCAINE JECT 2% PF 100 MG 75 MG in NS 150 ML IV ONE (10:00)
[2021-01-17] MEDS ORDERED: NA PHOS 15 MM in NS 250 ML IV ONE (10:00)
[2021-01-17] MEDS ORDERED: POTASSIUM CHLORIDE 40 MEQ, LIDOCAINE JECT 2% PF 100 MG 75 MG in 0.45% NS 250 ML IV ONE (10:15)
[2021-01-17] MEDS: VANCOMYCIN HCL 1,500 MG in NS 250 ML IV SCH ×2 (13:40→20:12)
[2021-01-17] MEDS ORDERED: FAMOTIDINE PF 20 MG/2 ML VIAL IVP ONE (15:15)
[2021-01-17] MEDS ORDERED: MUPIROCIN 1 GM OIN.PF.APP NS ONE (16:45)
[2021-01-17] MEDS: cloNIDine HCL 0.1 MG TABLET PO PRN (17:02)
[2021-01-17] MEDS: FAMOTIDINE PF 20 MG/2 ML VIAL IVP SCH (20:09)
[2021-01-17] MEDS: MUPIROCIN 1 GM OIN.PF.APP NS SCH (20:10)
[2021-01-17] MEDS: INSULIN REGULAR, HUMAN 100 UNITS in NS 99 ML IV PRN ×2 (21:45)
[2021-01-18] VITALS (24 sets, daily range): BP systolic 97–158
[2021-01-18] MEDS: KCL 20 mEq in NS 1000 mL 1,000 ML IV SCH ×3 (00:05→15:35)
[2021-01-18] MEDS: INSULIN REGULAR, HUMAN 100 UNITS in NS 99 ML IV PRN ×4 (01:05→01:30)
[2021-01-18] MEDS: VANCOMYCIN HCL 1,500 MG in NS 250 ML IV SCH (05:29)
[2021-01-18] MEDS: METOCLOPRAMIDE HCL 10 MG/2 ML VIAL IVP SCH ×3 (05:30→21:01)
[2021-01-18] MEDS: D5/0.45 NS 1,000 ML IV SCH ×2 (05:30→20:55)
[2021-01-18 05:43] LABS: CALCIUM 8.6 mg/dL (8.4-11.0); CREATININE 0.85 mg/dL (0.55-1.30); PHOSPHORUS 1.7 mg/dL (2.7-4.5); POTASSIUM 3.1 mmol/L (3.5-5.1); TOTAL BILIRUBIN 0.5 mg/dL (0.0-1.0)
[2021-01-18 06:04] LABS: BASOPHILS % (AUTO) 0.3 % (0.0-2.0); EOSINOPHILS % (AUTO) 0.1 % (0.0-4.0); HEMATOCRIT 35.5 % (36-54); HEMOGLOBIN 11.8 g/dL (14.0-18.0); LYMPHOCYTES # (AUTO) 1.4 K/uL (1.0-5.5); LYMPHOCYTES % (AUTO) 14.8 % (20.5-51.5); MEAN CORPUSCULAR HEMOGLOBIN 31 pg (27-31); MEAN CORPUSCULAR HGB CONC 33 % (32-36); MEAN CORPUSCULAR VOLUME 94 fL (79.0-98.0); MONOCYTES # (AUTO) 1.4 K/uL (0.0-1.0); MONOCYTES % (AUTO) 14.5 % (1.7-9.3); NEUTROPHILS # (AUTO) 6.6 K/uL (1.8-7.7); NEUTROPHILS % (AUTO) 70.3 % (40.0-70.0); PLATELET COUNT (AUTO) 153 K/uL (130-430); WHITE BLOOD COUNT (AUTO) 9.3 K/uL (4.8-10.8)
[2021-01-18] MEDS: MORPHINE 2 MG/ML INJ. SYRINGE IVP PRN (06:12)
[2021-01-18] MEDS: ONDANSETRON HCL 4 MG/2 ML VIAL IVP PRN (08:17)
[2021-01-18] MEDS ORDERED: POTASSIUM CHLORIDE 40 MEQ, LIDOCAINE JECT 2% PF 100 MG 50 MG in NS 250 ML IV ONE (09:00)
[2021-01-18] MEDS: SODIUM PHOSPHATE IN 0.9 % NACL 250 ML IV SCH ×2 (09:33→12:51)
[2021-01-18] MEDS: LOSARTAN POTASSIUM 25 MG TABLET PO SCH ×2 (09:34→20:29)
[2021-01-18] MEDS: FAMOTIDINE PF 20 MG/2 ML VIAL IVP SCH ×2 (09:34→20:27)
[2021-01-18] MEDS: METOPROLOL TARTRATE 25 MG TABLET PO SCH ×2 (09:34→20:31)
[2021-01-18] MEDS: LACOSAMIDE 100 MG TABLET PO SCH ×2 (09:34→20:32)
[2021-01-18] MEDS: LamoTRIgine 25 MG TABLET PO SCH ×2 (09:34→20:31)
[2021-01-18] MEDS: MUPIROCIN 1 GM OIN.PF.APP NS SCH ×2 (09:35→20:27)
[2021-01-18] MEDS: DIVALPROEX SODIUM 250 MG TAB.SR.24H (DEPAKOTE ER) PO SCH ×2 (09:36→20:30)
[2021-01-18] MEDS: VANCOMYCIN HCL 1,000 MG in NS 250 ML IV SCH ×2 (13:09→18:09)
[2021-01-19] VITALS (13 sets, daily range): BP systolic 130–154
[2021-01-19] MEDS: KCL 20 mEq in NS 1000 mL 1,000 ML IV SCH ×3 (00:30→15:29)
[2021-01-19] MEDS: VANCOMYCIN HCL 1,000 MG in NS 250 ML IV SCH ×4 (00:57→20:43)
[2021-01-19] MEDS: METOCLOPRAMIDE HCL 10 MG/2 ML VIAL IVP SCH ×3 (06:11→21:22)
[2021-01-19] MEDS: INSULIN REGULAR, HUMAN 100 UNITS in NS 99 ML IV PRN ×2 (06:25)
[2021-01-19 06:36] LABS: ALBUMIN 1.9 g/dL (3.4-4.8); CALCIUM 8.5 mg/dL (8.4-11.0); CREATININE 0.67 mg/dL (0.55-1.30); TOTAL BILIRUBIN 0.6 mg/dL (0.0-1.0)
[2021-01-19 07:30] LABS: POTASSIUM 2.9 mmol/L (3.5-5.1)
[2021-01-19] MEDS ORDERED: POTASSIUM CHLORIDE 20 MEQ TAB.PRT.SR PO ONE (08:15)
[2021-01-19] MEDS ORDERED: POTASSIUM CHLORIDE 40 MEQ in NS 250 ML IV ONE (08:15)
[2021-01-19] MEDS: LOSARTAN POTASSIUM 25 MG TABLET PO SCH ×2 (08:39→20:09)
[2021-01-19] MEDS: LamoTRIgine 25 MG TABLET PO SCH ×2 (08:39→20:09)
[2021-01-19] MEDS: FAMOTIDINE PF 20 MG/2 ML VIAL IVP SCH ×2 (08:39→20:10)
[2021-01-19] MEDS: LACOSAMIDE 100 MG TABLET PO SCH ×2 (08:40→20:09)
[2021-01-19] MEDS: METOPROLOL TARTRATE 25 MG TABLET PO SCH ×2 (08:40→20:10)
[2021-01-19] MEDS: MUPIROCIN 1 GM OIN.PF.APP NS SCH ×2 (08:42→20:10)
[2021-01-19] MEDS: DIVALPROEX SODIUM 250 MG TAB.SR.24H (DEPAKOTE ER) PO SCH ×2 (08:48→20:44)
[2021-01-19] MEDS: INSULIN LISPRO SLIDING SCALE 100 UNITS/ML VIAL (humaLOG) SUBCUT PRN ×2 (18:49→21:21)
[2021-01-19] MEDS: ONDANSETRON HCL 4 MG/2 ML VIAL IVP PRN (20:08)
[2021-01-19] MEDS ORDERED: VANCOMYCIN HCL 1000 MG/VIAL IV ONE (20:32)
[2021-01-19] MEDS ORDERED: INSULIN GLARGINE 100 UNITS/ML 10 ML VIAL SUBCUT ONE (21:15)
[2021-01-20] VITALS (7 sets, daily range): BP systolic 136–159
[2021-01-20] MEDS: KCL 20 mEq in NS 1000 mL 1,000 ML IV SCH ×3 (02:56→17:23)
[2021-01-20] MEDS: VANCOMYCIN HCL 1,000 MG in NS 250 ML IV SCH (02:57)
[2021-01-20 05:54] LABS: BASOPHILS % (AUTO) 0.1 % (0.0-2.0); EOSINOPHILS # (AUTO) 0.1 K/uL (0.0-0.4); EOSINOPHILS % (AUTO) 1.4 % (0.0-4.0); HEMATOCRIT 31.7 % (36-54); HEMOGLOBIN 10.7 g/dL (14.0-18.0); LYMPHOCYTES # (AUTO) 1.8 K/uL (1.0-5.5); LYMPHOCYTES % (AUTO) 25.4 % (20.5-51.5); MEAN CORPUSCULAR HEMOGLOBIN 32 pg (27-31); MEAN CORPUSCULAR HGB CONC 34 % (32-36); MEAN CORPUSCULAR VOLUME 94 fL (79.0-98.0); MONOCYTES # (AUTO) 0.7 K/uL (0.0-1.0); MONOCYTES % (AUTO) 10.1 % (1.7-9.3); NEUTROPHILS # (AUTO) 4.4 K/uL (1.8-7.7); PLATELET COUNT (AUTO) 180 K/uL (130-430); RED BLOOD CELL COUNT(AUTO) 3.37 MIL/uL (4.2-6.2); RED CELL DISTRIBUTION WIDTH 14.4 % (9.0-15.0)
[2021-01-20 06:03] LABS: ALBUMIN 1.8 g/dL (3.4-4.8); CALCIUM 8.4 mg/dL (8.4-11.0); CREATININE 0.67 mg/dL (0.55-1.30); PHOSPHORUS 3.4 mg/dL (2.7-4.5); POTASSIUM 3.1 mmol/L (3.5-5.1); TOTAL BILIRUBIN 0.3 mg/dL (0.0-1.0)
[2021-01-20] MEDS: METOCLOPRAMIDE HCL 10 MG/2 ML VIAL IVP SCH ×3 (06:08→21:03)
[2021-01-20] MEDS: INSULIN LISPRO SLIDING SCALE 100 UNITS/ML VIAL (humaLOG) SUBCUT PRN ×4 (06:10→21:46)
[2021-01-20] MEDS: LACOSAMIDE 100 MG TABLET PO SCH ×2 (08:16→20:51)
[2021-01-20] MEDS: LamoTRIgine 25 MG TABLET PO SCH ×2 (08:16→20:52)
[2021-01-20] MEDS: FAMOTIDINE PF 20 MG/2 ML VIAL IVP SCH ×2 (08:16→20:53)
[2021-01-20] MEDS: MUPIROCIN 1 GM OIN.PF.APP NS SCH ×2 (08:16→20:53)
[2021-01-20] MEDS: DIVALPROEX SODIUM 250 MG TAB.SR.24H (DEPAKOTE ER) PO SCH ×2 (08:18→20:54)
[2021-01-20] MEDS: METOPROLOL TARTRATE 25 MG TABLET PO SCH ×2 (08:18→20:52)
[2021-01-20] MEDS: LOSARTAN POTASSIUM 25 MG TABLET PO SCH ×2 (08:19→20:52)
[2021-01-20] MEDS: VANCOMYCIN HCL 1,500 MG in NS 250 ML IV SCH ×3 (08:20→20:27)
[2021-01-20] MEDS ORDERED: POTASSIUM CHLORIDE 20 MEQ TAB.PRT.SR PO ONE (09:00)
[2021-01-20] MEDS ORDERED: INSULIN GLARGINE 100 UNITS/ML 10 ML VIAL SUBCUT SCH (09:00)
[2021-01-20 11:35] LABS: BILIRUBIN,URINE NEGATIVE (NEGATIVE); BLOOD, URINE NEGATIVE (NEGATIVE); CLARITY/URINE CLEAR (CLEAR); COLOR,URINE YELLOW (YELLOW); GLUCOSE,URINE 3+ (NEGATIVE); KETONES,URINE 2+ (NEGATIVE); LEUKOCYTE ESTERASE ,URINE NEGATIVE (NEGATIVE); NITRITE, URINE NEGATIVE (NEGATIVE); PROTEIN URINE NEGATIVE (NEGATIVE); UROBILINOGEN,URINE 0.2 (0.2-1.0)
[2021-01-20 12:00] LABS: RBC,URINE 0-3 /HPF (0-3); WBC,URINE NONE SEEN /HPF (0-3)
[2021-01-20 12:01] LABS: BACTERIA,URINE RARE /HPF (None Seen)
[2021-01-21 00:02] VITALS: BP_SYST 161
[2021-01-21] MEDS: cloNIDine HCL 0.1 MG TABLET PO PRN ×2 (00:20→14:56)
[2021-01-21] MEDS: KCL 20 mEq in NS 1000 mL 1,000 ML IV SCH ×3 (00:20→14:59)
[2021-01-21] MEDS: VANCOMYCIN HCL 1,500 MG in NS 250 ML IV SCH ×3 (02:21→15:01)
[2021-01-21] MEDS: METOCLOPRAMIDE HCL 10 MG/2 ML VIAL IVP SCH ×2 (05:52→14:59)
[2021-01-21] MEDS: INSULIN LISPRO SLIDING SCALE 100 UNITS/ML VIAL (humaLOG) SUBCUT PRN ×3 (05:58→17:17)
[2021-01-21 07:18] LABS: ALBUMIN 1.8 g/dL (3.4-4.8); CALCIUM 7.8 mg/dL (8.4-11.0); CREATININE 0.63 mg/dL (0.55-1.30); TOTAL BILIRUBIN 0.3 mg/dL (0.0-1.0)
[2021-01-21 07:48] LABS: POTASSIUM 2.7 mmol/L (3.5-5.1)
[2021-01-21] MEDS ORDERED: POTASSIUM CHLORIDE 20 MEQ TAB.PRT.SR PO ONE ×2 (08:15→21:00)
[2021-01-21] MEDS ORDERED: INSULIN GLARGINE 100 UNITS/ML 10 ML VIAL SUBCUT SCH (09:00)
[2021-01-21] MEDS: LamoTRIgine 25 MG TABLET PO SCH (09:24)
[2021-01-21] MEDS: LOSARTAN POTASSIUM 25 MG TABLET PO SCH (09:25)
[2021-01-21] MEDS: METOPROLOL TARTRATE 25 MG TABLET PO SCH (09:25)
[2021-01-21] MEDS: FAMOTIDINE PF 20 MG/2 ML VIAL IVP SCH (09:27)
[2021-01-21] MEDS: LACOSAMIDE 100 MG TABLET PO SCH (09:27)
[2021-01-21] MEDS: MUPIROCIN 1 GM OIN.PF.APP NS SCH (09:33)
[2021-01-21] MEDS: DIVALPROEX SODIUM 250 MG TAB.SR.24H (DEPAKOTE ER) PO SCH (09:33)
[2021-01-21 10:23] VITALS: BP_SYST 167
[2021-01-21 12:46] VITALS: BP_SYST 156
[2021-01-21 15:25] VITALS: BP_SYST 155
[2021-01-21] MEDS ORDERED: POTASSIUM CHLORIDE 10 MEQ TAB.PRT.SR PO ONE (17:45)
[2021-01-21 19:43] VITALS: BP_SYST 144
[2021-01-21 20:06] VITALS: BP_SYST 144
[2021-01-22] MEDS ORDERED: INSULIN GLARGINE 100 UNITS/ML 10 ML VIAL SUBCUT SCH (09:00)
== END 2021-01-21 20:35 | disposition home or self-care (01) | DRG 438 ==
LOC: SED 19:21 → SIC 22:26 → STU 01-20 06:33
PROVIDERS: ADMIT Internal Medicine; ATTEND Internal Medicine
DX: K85.90 Acute pancreatitis without necrosis or infection, unspecified (principal); E11.10 Type 2 diabetes mellitus with ketoacidosis without coma; N17.0 Acute kidney failure with tubular necrosis; E43 Unspecified severe protein-calorie malnutrition; R78.81 Bacteremia; K86.1 Other chronic pancreatitis; E78.1 Pure hyperglyceridemia; Z20.822 Contact with and (suspected) exposure to COVID-19; G40.909 Epilepsy, unspecified, not intractable, without status epilepticus; R00.0 Tachycardia, unspecified; E86.0 Dehydration; E87.6 Hypokalemia; Z91.14 Patient's other noncompliance with medication regimen; Z79.899 Other long term (current) drug therapy; Z79.4 Long term (current) use of insulin; Z68.35 Body mass index [BMI] 35.0-35.9, adult; Z22.322 Carrier or suspected carrier of Methicillin resistant Staphylococcus aureus
CPT/HCPCS: 36415; 36600; 71045; 76376; 76700-TC; 80048; 80053; 80076; 80164-TC; 80202-TC; 81000-TC; 82009-TC; 82150-TC; 82550-TC; 82570-TC; 82803-TC; 82962; 83036; 83690-TC; 83735-TC; 84100-TC; 84443-TC; 84478-TC; 84484; 85025; 85379; 87040-TC; 87081; 93005; 96365; 96366; 96367; 96375; 99291; G0378; J0360; J0696; J1815; J2001; J2270; J2405; J2765; J3370; J3480; J3490; J7030; J7050; J7060